=== PATIENT | female | born 1980 | race Caucasian/White ===

== ENCOUNTER → 2019-01-31 08:41 | Outpatient (CLI) | payer MEDICARE, MEDICAID, SELFPAY ==
--- NOTE | 2019-01-31 08:45 | MM_ITS ---
MM Dig screening mamm BI w/CAD CAD Screening COMPARISON: None, this is baseline INDICATION: There is no personal or family history of breast cancer TECHNIQUE: Standard CC and MLO images were obtained. R2 CAD reviewed. FINDINGS: Moderate fibroglandular densities are seen in the central portions of both breasts and the findings are bilateral and symmetrical. There is no suspicious lesion and there are no suspicious microcalcifications. IMPRESSION: Moderate breast density with no suspicious lesion seen BI-RADS Category: 1 Negative RECOMMENDED FOLLOW-UP: 1YR - 1 YEAR FOLLOW-UP (A letter has been sent to the patient regarding results of the study.)
== END ==
PROVIDERS: PCP Nurse Practitioner Family; Visit Provider Nurse Practitioner Obstetrics & Gynecology
DX: Z12.31 Encounter for screening mammogram for malignant neoplasm of breast (principal)
CPT/HCPCS: 77067

== ENCOUNTER → 2019-08-02 08:50 | Outpatient (CLI) | payer MEDICARE, MEDICAID, SELFPAY ==
--- NOTE | 2019-08-02 08:59 | XR_ITS ---
PROCEDURE: XR KNEE LT 4V CLINICAL INDICATION: left knee pain COMPARISON: No exams were available for comparison FINDINGS: No fracture or dislocation. No lytic or blastic change. There is normal mineralization. The joint spaces are well-preserved. No significant degenerative/arthritic changes. No erosive changes evident. Other findings:A small suprapatellar joint effusion is noted. IMPRESSION: No bone pathology. Small suprapatellar joint effusion. Dictated by: Theo Jackson 08/02/2019 09:56 Electronically signed by Theo Jackson in [place] 08/02/2019 09:56
== END ==
PROVIDERS: PCP Nurse Practitioner Family; Visit Provider Orthopaedic Surgery
DX: M25.562 Pain in left knee (principal)
CPT/HCPCS: 73564

== ENCOUNTER → 2020-04-25 15:20 | Outpatient (CLI) | payer MEDICARE, MEDICAID, SELFPAY ==
--- NOTE | 2020-04-25 15:23 | MM_ITS ---
PROCEDURE: MM DIG SCREENING MAMM BI W/CAD Referring Doctor: Jaimie Valdes Patient Age:39Y CLINICAL INDICATION: SCREENING 39-year-old. No new complaints IUD in place./premenopausal Family history: Unremarkable COMPARISON: MG DIG MAMM-SCREEN SURENDRA from 01/31/2019 TECHNIQUE: Standard CC and MLO images were obtained. R2 CAD reviewed. Bilateral digital breast tomosynthesis included. Additional axillary CC view bilaterally FINDINGS: moderately dense breast tissue bilaterally, most evident at central cone both breast and extending towards upper-outer quadrant . similar architecture in pattern to previous studies with no new dominant or suspicious mass. No suspicious calcifications. CAD highlights no areas of concern either breast either would note the mammography is slightly decreased sensitivity within moderately dense breast tissue of this characterof potentially obscuring densities but discrete new areas of concern seen today. Right breast. No new areas of significant concern Slightly patchy parenchymal pattern, which appears similar to the previous studies with no significant new areas of concern. Left breast no new areas significant concern Again the of moderately dense slight patchy pattern of breast tissue superiorly again noted IMPRESSION: Stable bilateral mammogram no new areas of significant concern Bilateral follow-up 1 year Patient's moderately dense breast tissue, does slightly decrease sensitivity BI-RAD Category: 2 Benign Finding(s) FOLLOW-UP: 1YR 1 Year Follow-up (A letter has been sent to the patient regarding results of the study.) Dictated by: Grady Romero MD 04/25/2020 22:59 Grady Romero MD in [place] 04/25/2020 22:59
== END ==
PROVIDERS: PCP Nurse Practitioner Family; Visit Provider Nurse Practitioner
DX: Z12.31 Encounter for screening mammogram for malignant neoplasm of breast (principal)
CPT/HCPCS: 77063; 77067

== ENCOUNTER 2025-02-13 20:24 | Emergency (ER) | payer MEDICARE, MEDICAID, SELFPAY ==
--- NOTE | 2025-02-13 20:25 | XR_ITS ---
PROCEDURE INFORMATION: Exam: XR Chest Exam date and time: 02/13/2025 8:43 PM Age: 44 years old Clinical indication: Shortness of breath; Additional info: Short of breath TECHNIQUE: Imaging protocol: Radiologic exam of the chest. Views: 1 view. COMPARISON: No relevant prior studies available. FINDINGS: Lungs: Unremarkable. No consolidation. Pleural spaces: Unremarkable. No pleural effusion. No pneumothorax. Heart/Mediastinum: Unremarkable. No cardiomegaly. Bones/joints: Unremarkable. IMPRESSION: No acute findings.
--- NOTE | 2025-02-13 20:26 | ECG_ITS ---
APPROVED REPORT Exam: Resting ECG HR:86 bpm ECG Measurements Heart Rate 86 AXES WA 129 P 56 QRSd 89 QRS 72 QT 382 T 76 QTc 425 Conclusion SINUS RHYTHM NORMAL ECG Electronically signed by : PITER BARAJAS, 02/13/2025 23:34:29
[2025-02-13 20:28] VITALS: BP 185/122; PULSE 97; RESP 12; TEMP 37.2; O2SAT 97; BMI 32.3
--- NOTE | 2025-02-13 20:32 | ED_ITS ---
Discharge Plan Disposition Patient Disposition: Home, Self-Care Condition: Good Prescriptions Prescriptions: New bisoprolol fumarate 5 mg tablet 5 mg PO DAILY Qty: 30 0RF prednisone 20 mg tablet 40 mg PO DAILY 5 Days Qty: 10 0RF hydrochlorothiazide 25 mg tablet 25 mg PO DAILY Qty: 30 0RF fluticasone furoate-vilanterol [Breo Ellipta] 100-25 mcg/dose blister with device 1 inh inhalation DAILY Qty: 60 0RF No Action Mirena 20 mcg/24 hours (5 yrs) 52 mg intrauterine device INTRAUTERI betamethasone dipropionate 0.05 % cream 1 applic topical BID Qty: 15 1RF albuterol sulfate 90 mcg/actuation HFA aerosol inhaler 1 puff inhalation Q6H PRN (Reason: shortness of breath or wheezing) 30 Days Qty: 6.7 5RF bisoprolol fumarate 5 mg tablet 5 mg PO DAILY 30 Days Qty: 30 3RF cetirizine 10 mg tablet 10 mg PO DAILY PRN (Reason: allergy symptoms) Qty: 30 2RF hydrochlorothiazide 25 mg tablet 25 mg PO DAILY Qty: 30 3RF fluticasone furoate-vilanterol [Breo Ellipta] 100-25 mcg/dose blister with device 1 inh inhalation DAILY Qty: 60 4RF Referrals Follow up/Referrals: Bharathi Gamez II, MD [Staff Physician, Gastroenterology] - See instructions ProviderCasper MD [Referring, Medical] - See instructions Hamida King MD [Physician, Pulmonology] - See instructions Activity Restrictions/Add. Instructions Additional Instructions/Restrictions: You were evaluated in the emergency department today. As we discussed, it is very important that you take your medications at home as prescribed. I am providing you a refill today, however it is important that you follow-up closely with a primary care provider as well as with pulmonology for further refills of your medications and for monitoring of your lung nodules and COPD. I am also recommending follow-up with GI given your alcoholic hepatitis or elevation in liver enzymes secondary to alcohol use. Return to the emergency department for new or worsening symptoms. Clinical Impressions Clinical Impression: Acute exacerbation of chronic obstructive pulmonary disease, Alcoholic hepatitis, Lung nodules, Hypertension Stand Alone Forms Stand Alone Forms: Work/School Release Instructions Patient Instructions: DI for Chronic Obstructive Pulmonary Disease, DI for High Blood Pressure, DI for Shortness of Breath, DI for Pulmonary Nodule Print Language Print Language: Nauruan Discharge ED Provider: Jenny Michael HPI <Lucy Maharaj (ED), CREMATORY OPERATOR - Last Filed: 02/13/25 21:42> General Chief Complaint: Shortness of Breath/Dyspnea Stated Complaint: Shortness of breath Time Seen by Provider: 02/13/25 20:30 History of Present Illness HPI narrative: 44-year-old female presents to the ED today for complaint of shortness of breath. She has COPD and has been out of her Breo inhaler for the past 2 days and her shortness of breath has gotten worse since she has been out of her inhaler. Patient did arrive via EMS. She does have a cough today. This is not productive. She admits to smoking daily and drinking daily. Her last drink was yesterday. She does use a rescue inhaler. It is albuterol. Patient's blood pressure is elevated today. She is also on blood pressure medicine that she is also out of. She denies any fevers or chills. No nausea, vomiting or diarrhea. No other systemic symptoms of infection. Related Data Home Medications ?Medication ?Instructions ?Recorded ?Confirmed levonorgestrel (Mirena) intrauterine 01/31/19 Previous Rx's ?Medication ?Instructions ?Recorded fluticasone furoate 100 1 inh inhalation DAILY #60 e a 01/23/24 mcg-vilanterol 25 mcg/dose inhalation powder (Breo Ellipta) albuterol sulfate 90 mcg/actuation 1 puff inhalation Q 6H PRN 01/24/24 aerosol inhaler shortness of breath or wheez ing 30 days #6.7 grams betamethasone dipropionate 0.05 % 1 applic topical BID #15 grams 01/24/24 topical cream bisoprolol fumarate 5 mg tablet 5 mg PO DAILY HTN 30 d ays #30 tabs 01/24/24 cetirizine 10 mg tablet 10 mg PO DAILY PRN allergy 0 01/24/24 symptoms #30 tabs hydrochlorothiazide 25 mg tablet 25 mg PO DAILY #30 ta bs 01/24/24 bisoprolol fumarate 5 mg tablet 5 mg PO DAILY #30 tabs 02/13/25 fluticasone furoate 100 1 inh inhalation DAILY #60 e a 02/13/25 mcg-vilanterol 25 mcg/dose inhalation powder (Breo Ellipta) hydrochlorothiazide 25 mg tablet 25 mg PO DAILY #30 ta bs 02/13/25 prednisone 20 mg tablet 40 mg (2 x 20 mg) PO DAILY 5 days 02/13/25 #10 tabs Allergies Allergy/AdvReac Type Severity Reaction Status Date / Time No Known Allergies Allergy Verified 01/24/24 15:40 PFS <Lucy Maharaj (ED), CREMATORY OPERATOR - Last Filed: 02/13/25 21:42> PFS Disclaimer: The information contained in this section may have been updated after the patient was seen, as this information can be updated by other users. Medical History COPD (chronic obstructive pulmonary disease) Depression Anxiety Hypertension Surgical History History of cholecystectomy Social History Smoking Status: Current every day smoker tobacco type: cigarettes packs per day: 1 alcohol intake: never substance use type: former substance user and painkillers current occupational status: disabled Travel in the last 8 weeks?: None Have you lived/traveled outside [place] in past 30 days?: No Contact w/someone who lives/traveled outside US past 30 days?: No Exposure to someone with infectious disease in past 14 days?: No Do you have a fever (greater than 100.4 F or 38 C)?: No Have you tested positive for COVID-19?: No Exposed to someone with COVID-19 in past 14 days?: No Do you have a sore throat?: No Do you have a cough?: No Do you have any weakness?: No Do you have any diarrhea?: No Are you experiencing any unusual bleeding?: No Do you have any muscle aches/pain?: No Do you have any abdominal pain?: No Are you experiencing loss of taste or smell?: No Other Medical History Have you received the Pneumonia Vaccine: No <Lucy Maharaj (ED), CREMATORY OPERATOR - Last Filed: 02/13/25 21:42> ROS Obtained: Yes Systems reviewed as appropriate & no additional complaints except as documented Constitutional Constitutional: Reports as per HPI Physical Exam <Lucymitchell Maharaj (ED), CREMATORY OPERATOR - Last Filed: 02/13/25 21:42> General General appearance: alert and in distress (Short of breath) Head Head exam: normocephalic Eye Eye exam: Present PERRL ENT ENT exam: Present mucous membranes moist Neck Neck exam: Present trachea midline Chest Chest inspection: Present symmetric chest wall rise Respiratory Respiratory exam: Present respiratory distress, wheezes and accessory muscle use Cardiovascular Cardiovascular exam: Present regular rate, normal rhythm, normal heart sounds, +S1 and +S2 Abdominal Exam Abdominal exam: Present soft and normal bowel sounds Extremities Exam Extremities exam: Present full ROM and normal capillary refill Neurological Exam Neurological exam: Present alert and oriented X3 Psychiatric Psychiatric exam: Present normal mood Skin Skin exam: Present warm and dry HEART Score <Lucyannemarie Maharaj (ED), CREMATORY OPERATOR - Last Filed: 02/13/25 21:42> HEART Score HEART Score assessment performed?: Yes History (anamnesis): Slightly suspicious ECG: Normal Age: 45-65 years Risk factors: 1-2 risk factors Troponin: </= normal limit HEART Score: 2 <Jenny Michael DO - Last Filed: 02/13/25 23:26> HEART Score HEART Score: 2 Critical Care <Jenny Michael DO - Last Filed: 02/13/25 23:26> Critical Care Time Critical Care Time: No Medical Decision Making <[facility] ([facility]), CREMATORY OPERATOR - Last Filed: 02/13/25 21:42> Rahul Inquiry Pt receiving controlled substance: No Rahul was queried for this patient: No Vital Signs Vital Signs: 02/13/25 20:28 02/13/25 20:36 02/13/25 21:30 Temperature 98.9 F Temperature Source Oral Pulse Rate 101 H Pulse Rate [Right] 97 H Respiratory Rate 12 16 Blood Pressure 173/107 H Blood Pressure [Right Arm] 185/122 H Blood Pressure Mean [Right Arm] 143 02 Sat by Pulse Oximetry 97 97 97 Oxygen Delivery Method Room Air Room Air 02/13/25 22:30 Temperature Temperature Source Pulse Rate 95 H Pulse Rate [Right] Respiratory Rate 13 Blood Pressure 194/114 H Blood Pressure [Right Arm] Blood Pressure Mean [Right Arm] 02 Sat by Pulse Oximetry 97 Oxygen Delivery Method Lab Data Labs: Lab Results 02/13/25 20:30: WBC 8.3, RBC 4.24, Hgb 15.9, Hct 44.9, MCV 105.9 H, MCH 37.5 H, MCHC 35.4, RDW 13.2, Plt Count 214, MPV 10.1, Neut % (Auto) 72.2, Lymph % (Auto) 20.0, Centre % (Auto) 5.7, Eos % (Auto) 1.2, Baso % (Auto) 0.7, Neut # (Auto) 6.0, Lymph # (Auto) 1.7, Centre # (Auto) 0.5, Eos # (Auto) 0.1, Baso # (Auto) 0.1, D- Dimer 0.66 H, Sodium 134 L, Potassium 4.3, Chloride 103, Carbon Dioxide 26, Anion Gap 9.3, BUN 4 L, Creatinine 0.60, Estimated Creat Clear 134, Estimated GFR 108, Est GFR ( Amer) 130, Glucose 119 H, Calcium 8.4, Magnesium 1.8, Total Bilirubin 1.0, AST 353 H*, ALT 132 H, Alkaline Phosphatase 74, Troponin I < 0.01, NT-Pro-B Natriuret Pep 210 H, Total Protein 6.7, Albumin 3.9, Globulin 2.8, Albumin/Globulin Ratio 1.4, Lipase 69, Plasma/Serum Alcohol < 10, HCV Ab LILLY w/Rflx PCR Qn Negative, HIV Ag/Ab Combo Qual Negative 02/13/25 20:36: VBG pH 7.45 H, VBG pCO2 38.0, VBG pO2 34.2, VBG HCO3 25.9, VBG Total CO2 27.1 H, VBG O2 Saturation 66.1, VBG Base Excess 2.0, VBG Lactic Acid 2.9 H 02/13/25 20:30 02/13/25 20:30 Response Orders (Tests/Meds): ED MEDICATIONS Discontinued Medications Generic Name Dose Route Start Last Admin Trade Name Freq PRN Reason Stop Dose Admin Albuterol/Ipratropium 3 ml 02/13/25 20:24 02/13/25 20:48 Ipratropium/Albuterol 3 Ml Neb IH 02/13/25 20:25 3 ml ONCE ONE Administration Magnesium Sulfate 2 gm in 50 mls @ 50 mls/hr 02/13/25 20:24 02/13/25 20:48 Magnesium Sulfate 2gm/50ml Premix IV 02/13/25 21:23 50 mls/hr ONCE ONE Administration Sodium Chloride 1,000 mls @ 999 mls/hr 02/13/25 21:31 02/13/25 21:40 Sod Chlor 0.9% 1000ml Bag IV 02/13/25 22:31 999 mls/hr .Q1H1M ONE Administration Iopamidol 80 ml 02/13/25 21:55 02/13/25 21:56 Iopamidol-370 (76%);100ml Bottle IV 02/13/25 21:56 80 ml ONCE ONE Administration Methylprednisolone Sodium Succinate 125 mg 02/13/25 20:24 02/13/25 20:47 Methylprednisolone Sod Succ 125mg Vial IV 02/13/25 20:25 125 mg ONCE ONE Administration Sodium Chloride 50 ml 02/13/25 21:55 02/13/25 21:56 0.9 % Sodium Chloride 50 Ml Vial IV 02/13/25 21:56 50 ml ONCE ONE Administration Sodium Chloride 10 ml 02/13/25 21:55 02/13/25 21:56 Sodium Chloride 0.9% 10ml Syr (Rad Only) IV 02/13/25 21:56 10 ml ONCE ONE Administration ORDERS Category Date Time Status CT abdomen pelvis w con Stat Cat Scan 02/13/25 21:51 Completed CTA Chest [CT angio chest PE protocol] Stat Cat Scan 02/13/25 21:30 Completed Consult Pulling Machine Operator [CONS] Routine Cons 02/13/25 20:43 Active Chest XR -- portable [XR chest portable] Stat Exams 02/13/25 20:25 Completed BNP [NT Pro Brain Natriuretic Pep.] Stat Lab 02/13/25 20:30 Completed CBC [Complete Blood Count Auto Diff] Stat Lab 02/13/25 20:30 Completed Comprehensive Metabolic Panel Stat Lab 02/13/25 20:30 Completed D-Dimer Stat Lab 02/13/25 20:30 Completed Ethyl Alcohol Stat Lab 02/13/25 20:30 Completed HIV Combo Stat Lab 02/13/25 20:30 Completed Hepatitis C Ab Qual. W/ RFX Stat Lab 02/13/25 20:30 Completed Lipase Stat Lab 02/13/25 20:30 Completed Magnesium Stat Lab 02/13/25 20:30 Completed Trop I [Troponin I] Stat Lab 02/13/25 20:30 Completed Troponin I Q3H Lab 02/13/25 23:30 Ordered Troponin I Q3H Lab 02/14/25 02:30 Ordered VBG [Venous Blood Gas] Stat RT 02/13/25 20:36 Completed MDM Narrative Medical Decision Narrative: patient is a 44-year-old female presenting to the emergency department for evaluation of shortness of breath. Patient has elevated blood pressure appears short of breath but O2 sat is normal on room air patient is afebrile. Differential diagnosis includes COPD exacerbation, pneumonia, viral illness, among others. Workup will be conducted with hematologic labs, specific imaging. Initial inventions include magnesium IV to help with breathing, DuoNebs, Solu- Medrol. Initial workup reviewed by me hematologic labs are remarkable for dimer 0.66 so I ordered a CTA. Patient's AST was 353, ALT was 132 so now we have concern for alcoholic hepatitis. Discussed patient with Dr. Michael. <Jenny Michael, DO - Last Filed: 02/13/25 23:26> Vital Signs Vital Signs: 02/13/25 20:28 02/13/25 20:36 02/13/25 21:30 Temperature 98.9 F Temperature Source Oral Pulse Rate 101 H Pulse Rate [Right] 97 H Respiratory Rate 12 16 Blood Pressure 173/107 H Blood Pressure [Right Arm] 185/122 H Blood Pressure Mean [Right Arm] 143 02 Sat by Pulse Oximetry 97 97 97 Oxygen Delivery Method Room Air Room Air 02/13/25 22:30 Temperature Temperature Source Pulse Rate 95 H Pulse Rate [Right] Respiratory Rate 13 Blood Pressure 194/114 H Blood Pressure [Right Arm] Blood Pressure Mean [Right Arm] 02 Sat by Pulse Oximetry 97 Oxygen Delivery Method Lab Data Labs: Lab Results 02/13/25 20:30: WBC 8.3, RBC 4.24, Hgb 15.9, Hct 44.9, MCV 105.9 H, MCH 37.5 H, MCHC 35.4, RDW 13.2, Plt Count 214, MPV 10.1, Neut % (Auto) 72.2, Lymph % (Auto) 20.0, Centre % (Auto) 5.7, Eos % (Auto) 1.2, Baso % (Auto) 0.7, Neut # (Auto) 6.0, Lymph # (Auto) 1.7, Centre # (Auto) 0.5, Eos # (Auto) 0.1, Baso # (Auto) 0.1, D- Dimer 0.66 H, Sodium 134 L, Potassium 4.3, Chloride 103, Carbon Dioxide 26, Anion Gap 9.3, BUN 4 L, Creatinine 0.60, Estimated Creat Clear 134, Estimated GFR 108, Est GFR ( Amer) 130, Glucose 119 H, Calcium 8.4, Magnesium 1.8, Total Bilirubin 1.0, AST 353 H*, ALT 132 H, Alkaline Phosphatase 74, Troponin I < 0.01, NT-Pro-B Natriuret Pep 210 H, Total Protein 6.7, Albumin 3.9, Globulin 2.8, Albumin/Globulin Ratio 1.4, Lipase 69, Plasma/Serum Alcohol < 10, HCV Ab LILLY w/Rflx PCR Qn Negative, HIV Ag/Ab Combo Qual Negative 02/13/25 20:36: VBG pH 7.45 H, VBG pCO2 38.0, VBG pO2 34.2, VBG HCO3 25.9, VBG Total CO2 27.1 H, VBG O2 Saturation 66.1, VBG Base Excess 2.0, VBG Lactic Acid 2.9 H Response Orders (Tests/Meds): ED MEDICATIONS Discontinued Medications Generic Name Dose Route Start Last Admin Trade Name Freq PRN Reason Stop Dose Admin Albuterol/Ipratropium 3 ml 02/13/25 20:24 02/13/25 20:48 Ipratropium/Albuterol 3 Ml Neb IH 02/13/25 20:25 3 ml ONCE ONE Administration Magnesium Sulfate 2 gm in 50 mls @ 50 mls/hr 02/13/25 20:24 02/13/25 20:48 Magnesium Sulfate 2gm/50ml Premix IV 02/13/25 21:23 50 mls/hr ONCE ONE Administration Sodium Chloride 1,000 mls @ 999 mls/hr 02/13/25 21:31 02/13/25 21:40 Sod Chlor 0.9% 1000ml Bag IV 02/13/25 22:31 999 mls/hr .Q1H1M ONE Administration Iopamidol 80 ml 02/13/25 21:55 02/13/25 21:56 Iopamidol-370 (76%);100ml Bottle IV 02/13/25 21:56 80 ml ONCE ONE Administration Methylprednisolone Sodium Succinate 125 mg 02/13/25 20:24 02/13/25 20:47 Methylprednisolone Sod Succ 125mg Vial IV 02/13/25 20:25 125 mg ONCE ONE Administration Sodium Chloride 50 ml 02/13/25 21:55 02/13/25 21:56 0.9 % Sodium Chloride 50 Ml Vial IV 02/13/25 21:56 50 ml ONCE ONE Administration Sodium Chloride 10 ml 02/13/25 21:55 02/13/25 21:56 Sodium Chloride 0.9% 10ml Syr (Rad Only) IV 02/13/25 21:56 10 ml ONCE ONE Administration ORDERS Category Date Time Status CT abdomen pelvis w con Stat Cat Scan 02/13/25 21:51 Completed CTA Chest [CT angio chest PE protocol] Stat Cat Scan 02/13/25 21:30 Completed Consult Pulling Machine Operator [CONS] Routine Cons 02/13/25 20:43 Active Chest XR -- portable [XR chest portable] Stat Exams 02/13/25 20:25 Completed BNP [NT Pro Brain Natriuretic Pep.] Stat Lab 02/13/25 20:30 Completed CBC [Complete Blood Count Auto Diff] Stat Lab 02/13/25 20:30 Completed Comprehensive Metabolic Panel Stat Lab 02/13/25 20:30 Completed D-Dimer Stat Lab 02/13/25 20:30 Completed Ethyl Alcohol Stat Lab 02/13/25 20:30 Completed HIV Combo Stat Lab 02/13/25 20:30 Completed Hepatitis C Ab Qual. W/ RFX Stat Lab 02/13/25 20:30 Completed Lipase Stat Lab 02/13/25 20:30 Completed Magnesium Stat Lab 02/13/25 20:30 Completed Trop I [Troponin I] Stat Lab 02/13/25 20:30 Completed Troponin I Q3H Lab 02/13/25 23:30 Ordered Troponin I Q3H Lab 02/14/25 02:30 Ordered VBG [Venous Blood Gas] Stat RT 02/13/25 20:36 Completed ECG Data Tracing #1: Attestation: I reviewed this ECG and interpreted as documented below: ECG Narrative: Sinus rhythm with a ventricular rate of [address] changes concerning for ischemia. Normal intervals ECG initial impression date: 02/13/25 ECG initial impression time: 20:30 MDM Narrative Medical Decision Narrative: patient is a 44-year-old female presenting to the emergency department for evaluation of shortness of breath. Patient has elevated blood pressure appears short of breath but O2 sat is normal on room air patient is afebrile. Differential diagnosis includes COPD exacerbation, pneumonia, viral illness, among others. Workup will be conducted with hematologic labs, specific imaging. Initial inventions include magnesium IV to help with breathing, DuoNebs, Solu- Medrol. Initial workup reviewed by me hematologic labs are remarkable for dimer 0.66 so I ordered a CTA. Patient's AST was 353, ALT was 132 so now we have concern for alcoholic hepatitis. Discussed patient with Dr. Michael. Alec, DO: I was consulted by the PRANEETH, and we discussed the complexity of the problems being addressed. I approved the treatment and management plan for this patient's care in the emergency department, thus performing a substantive portion of the medical decision making. Patient has had 2 days of shortness of breath since running out of her inhaler. She also has not been taking her blood pressure medication and does have very high blood pressure here. CBC is reassuring with no significant leukocytosis or anemia. D-dimer was mildly elevated, so CTA was added on. Patient also has transaminitis in the setting of alcohol abuse, likely alcoholic hepatitis. She has no significant abdominal pain currently. CT abdomen pelvis with IV contrast was also added on. Troponin negative, and I do not feel that she needs a second troponin obtained given the symptoms been going on for 2 days and is likely because she ran out of her medications. I independently interpreted CTs prior to radiology read and noted no PE, no pneumothorax, no large focal consolidation concerning for pneumonia, no obvious acute intra-abdominal infection. Please see radiology read for final interpretation. They noted pulmonary nodules as well as fatty liver changes. I advised patient to follow-up outpatient for these. On reassessment, she states she is feeling fine and is ready to go home. I advised her that as a courtesy that I would refill her blood pressure medications and her inhaler today, but she really needs to follow-up outpatient with PCP as well as pulmonology for further assessment. She was also given counseling on alcohol cessation. She was discharged with strict return precautions, refills of bisoprolol, hydrochlorothiazide, and Breo inhaler, and a prescription for prednisone with concern for COPD exacerbation in the setting of worsening shortness of breath and cough, though is likely because she ran out of the inhaler. She did not have any sort of sputum production that would necessitate antibiotics at this time. Strict return precautions were given Jenny Michael DO
[2025-02-13 20:36] VITALS: O2SAT 97
--- NOTE | 2025-02-13 20:36 | PC.NURSE ---
Contacted respiratory r/t VBG sent to lab.
[2025-02-13 20:44] LABS: VBG HCO3 25.9 mmol/L (23-30); VBG PCO2 38.0 mmol/L (35-51); VBG PH 7.45 mmol/L (7.31-7.41); VBG PO2 34.2 mmol/L (28-40)
[2025-02-13 20:46] LABS: Lactate Venous 2.9 mmol/L (0.4-2.0)
[2025-02-13] MEDS: METHYLPREDNISOLONE SOD SUCC 125MG VIAL 125 MG IV (20:47)
[2025-02-13] MEDS: MAGNESIUM SULFATE IN WATER 2 GM/50 ML PIGGYBACK IV (20:48)
[2025-02-13] MEDS: IPRATROPIUM/ALBUTEROL 3 ML NEB IH (20:48)
[2025-02-13 20:53] LABS: Hematocrit 44.9 % (37.0-47.0); Hemoglobin 15.9 g/dL (12.2-16.2); Immature Granulocytes % 0.2 %; Mean Corpuscular HGB Conc 35.4 g/dL (31.8-35.4); Mean Corpuscular Hemoglobin 37.5 pg (27.0-31.2); Mean Corpuscular Volume 105.9 fl (81-99); Nucleated Red Blood Cells % 0 %; Platelet Count 214 K/mm3 (142-424); Red Blood Count 4.24 M/mm3 (4.20-5.40); Red Cell Distribution Width-SD 51.8 fL; White Blood Count 8.3 K/mm3 (4.8-10.8)
[2025-02-13 21:00] LABS: Chloride 103 mmol/L (98-107); Sodium 134 mmol/L (136-145)
[2025-02-13 21:01] LABS: Potassium 4.3 mmoL/L (3.5-5.1)
[2025-02-13 21:03] LABS: Alanine Aminotransferase 132 U/L (12-78); Alkaline Phosphatase 74 U/L (38-126); Anion Gap 9.3 mEq/L (5-15); Aspartate Amino Transferase 353 U/L (14-36); Bilirubin,Total 1.0 mg/dl (0.2-1.3); Blood Urea Nitrogen 4 mg/dl (7-17); Calcium 8.4 mg/dl (8.4-10.2); Carbon Dioxide 26 mmol/L (22.0-30.0); Creatinine Clearance Estimated 134 mL/min (50-200); Creatinine,Serum 0.60 mg/dl (0.52-1.04); Estimated Glomerular Filt Rate 108 ml/min (>60); GFR (African American) 130 ML/MIN (>60); Glucose 119 mg/dl (74-100); Lipase 69 U/L (23-300); Total Protein,Serum 6.7 g/dl (6.3-8.2)
[2025-02-13 21:04] LABS: Magnesium 1.8 mg/dl (1.6-2.3)
[2025-02-13 21:07] LABS: D-Dimer 0.66 ug/mL (0.0-0.5)
[2025-02-13 21:13] LABS: NT Pro Brain Natriuretic Pep. 210 pg/mL (0-125)
[2025-02-13 21:21] LABS: Troponin I < 0.01 ng/ml (0.00-0.034)
[2025-02-13 21:30] VITALS: BP 173/107; PULSE 101; RESP 16; O2SAT 97
--- NOTE | 2025-02-13 21:30 | CT_ITS ---
PROCEDURE INFORMATION: Exam: CTA Chest With Contrast Exam date and time: 02/13/2025 9:52 PM Age: 44 years old Clinical indication: Other: Elevated dimer TECHNIQUE: Imaging protocol: Computed tomographic angiography of the chest with contrast. Exam focused on the arteries. 3D rendering (Not supervised by radiologist): MIP and/or 3D reconstructed images were created x the technologist. Radiation optimization: All CT scans at this facility use at least one of these dose optimization techniques: automated exposure control; mA and/or kV adjustment per patient size (includes targeted exams where dose is matched to clinical indication); or iterative reconstruction. Contrast material: ISO; Contrast volume: 80 ml; Contrast route: INTRAVENOUS (IV); COMPARISON: CR XR CHEST PORTABLE 02/13/2025 8:43 PM FINDINGS: Pulmonary arteries: Evaluation of the pulmonary arteries is limited to the segmental arterial level due to motion artifact. Aorta: Unremarkable. No aortic aneurysm. No aortic dissection. Lungs: Multiple nonspecific pulmonary nodules. For follow-up purposes, examples include: 3 mm left upper lobe nodule image 26 series 8, 3 mm right left upper lobe nodule image 29 series 8, and 2 mm right middle lobe nodule image 72 series 8. Pleural spaces: Unremarkable. No pneumothorax. No pleural effusion. Heart: Unremarkable. No cardiomegaly. No pericardial effusion. Lymph nodes: Unremarkable. No enlarged lymph nodes. Bones/joints: Unremarkable. No acute fracture. Soft tissues: Unremarkable. Other findings: Please see separate report for abdomen/pelvis. Stigmata of old granulomatous disease. IMPRESSION: 1. Evaluation of the pulmonary arteries is limited to the segmental arterial level due to motion artifact. Within the limitations of the study, no pulmonary emboli. 2. Pulmonary nodules measuring up to 3 mm. For patients at low risk (minimal or absent history of smoking and of other known risk factors), no routine follow-up is indicated. For patients at high risk (history of smoking or of other known risk factors), consider optional CT Chest at 12 months. (Reference: Tonja) REFERENCES: Tonja Sol et al. Guidelines for Management of Incidental Pulmonary Nodules Detected on CT Images: From the Fleischner Society 2017. Radiology. 2017;284(1):228-243.
[2025-02-13 21:33] LABS: Albumin Level 3.9 g/dl (3.5-5.0); Albumin/Globulin Ratio 1.4 (1.1-1.8); Globulin 2.8 g/dL (1.3-3.2)
[2025-02-13] MEDS: 0.9 % SODIUM CHLORIDE 1000ML 1,000 ML 999 ML IV (21:40)
--- NOTE | 2025-02-13 21:51 | CT_ITS ---
PROCEDURE INFORMATION: Exam: CT Abdomen And Pelvis With Contrast Exam date and time: 02/13/2025 9:52 PM Age: 44 years old Clinical indication: Abdominal pain; Additional info: Transaminitis, SOA TECHNIQUE: Imaging protocol: Computed tomography of the abdomen and pelvis with contrast. 3D rendering (Not supervised by radiologist): MIP and/or 3D reconstructed images were created by the technologist. Radiation optimization: All CT scans at this facility use at least one of these dose optimization techniques: automated exposure control; mA and/or kV adjustment per patient size (includes targeted exams where dose is matched to clinical indication); or iterative reconstruction. Contrast material: ISOVUE; Contrast volume: 70 ml; Contrast route: IV; COMPARISON: CR XR CHEST PORTABLE 02/13/2025 8:43 PM FINDINGS: Liver: Hepatic steatosis. Low attenuation hepatic lesions measuring up to 5 mm in diameter are incompletely characterized, but are likely cysts. No followup imaging is recommended. Gallbladder and biliary ducts: Gallbladder is absent. Pancreas: Normal. No ductal dilation. Spleen: Normal. No splenomegaly. Adrenal glands: Normal. No mass. Kidneys and ureters: Normal. No hydronephrosis. Stomach and bowel: Mild nonspecific bowel wall thickening of portions of small bowel and colon. Appendix: Unremarkable appendix. Intraperitoneal space: Unremarkable. No free air. No significant fluid collection. Vasculature: Unremarkable. No abdominal aortic aneurysm. Lymph nodes: Unremarkable. No enlarged lymph nodes. Urinary bladder: Unremarkable as visualized. Reproductive: Intrauterine device is in the expected location. Bones/joints: Unremarkable. No acute fracture. Soft tissues: Tiny fat containing umbilical hernia. Other findings: Please see separate report for CT chest. Stigmata of old granulomatous disease. IMPRESSION: 1. Mild nonspecific bowel wall thickening of portions of small bowel and colon. Please exclude enterocolitis. 2. Hepatic steatosis.
[2025-02-13 21:52] LABS: Hepatitis C Ab Qual. W/ RFX NEGATIVE (Negative)
[2025-02-13] MEDS: IOPAMIDOL-370 (76%);100ML BOTTLE 80 ML IV (21:56)
[2025-02-13] MEDS: 0.9 % SODIUM CHLORIDE 50 ML VIAL IV (21:56)
[2025-02-13] MEDS: SODIUM CHLORIDE 0.9% 10ML SYR (RAD ONLY) 10 ML IV (21:56)
[2025-02-13 22:30] VITALS: BP 194/114; PULSE 95; RESP 13; O2SAT 97
[2025-02-13 23:26] VITALS: BP 192/104; PULSE 89; RESP 16; TEMP 36.6; O2SAT 98
[2025-02-14 00:46] LABS: Reflex Lactic Add Lactic Reflex
--- NOTE | 2025-02-18 12:23 | PEERSUPPORT ---
Peer Support Note Patient Information Patient Information: DOS: 02/14/2025 ? Building Rapport: Pt stated she has been drinking heavily since the of her in 2023. She drinks up to 6 tall boys or 16 oz. Natural Ice per day, and shots of Fire ball liquor. She has tried to cut back on her drinking knowing this is not good for her health. She has three children who she loves very much and know they need her. 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 ? Previous Treatment: ? Longest Length of Sobriety: ? Legal Issues: None ? Support System: -Mother -Children ? Current Stressors: -Unattended Grief -Depression -health issues ? Motivation for Change: Pt is motivated to seek treatment, aware that she may need medical detox for the alcohol. She is willing to go to [facility] in [facility] to maintain her sobriety. She reflects to past struggles with opiates pain pills and her strength/motivation with overcoming that she is able to overcome the alcohol. Says her mother will take her to [facility] for detox. ? Pt is planning to have conversation with her mother and family. She feels they will be very supportive of her to get the help she needs. ? Potential Barriers: -Lack of connection to recovery support -Continued drinking -Alcohol Withdrawal Symptoms - Insurance: ? Harm Reduction: -Connection to [facility] -Education on alcohol use disorder -Awareness to risk with detox -Treatment referrals/ resources -Healthy communication/ support -Medication available for AUD to be further discussed with
== END 2025-02-13 23:27 | disposition home or self-care (01) ==
PROVIDERS: Nurse Practitioner; Emergency Provider Emergency Medicine; PCP Family Medicine
DX: J44.1 Chronic obstructive pulmonary disease with (acute) exacerbation (principal); I10 Essential (primary) hypertension; R91.8 Other nonspecific abnormal finding of lung field; R74.01 Elevation of levels of liver transaminase levels; F17.210 Nicotine dependence, cigarettes, uncomplicated; F10.90 Alcohol use, unspecified, uncomplicated
CPT/HCPCS: 71045; 71275; 74177; 80053; 80320; 82803; 83690; 83735; 83880; 84484; 85025; 85378; 86803; 87389; 93005; 96361; 96365; 96375; 99285; J2919; J3475; J7030; Q9967